=== PATIENT | female | born 1990 ===

== ENCOUNTER 2021-02-18 06:38 | Inpatient (IN) | payer OTHER ==
[2021-02-18] MEDS ORDERED: ELECTROLYTE-148 SOLN 1,000 ML IV SCH (07:30)
[2021-02-18 07:36] LABS: INR 0.87 (0.83-1.09); PROTHROMBIN TIME (PATIENT) 9.7 SEC (9.7-13.0)
[2021-02-18 08:00] VITALS: BMI 35.2
[2021-02-18] MEDS ORDERED: ACETAMINOPHEN 325 MG TABLET (FP) PO PRN (08:03)
[2021-02-18] MEDS ORDERED: ONDANSETRON 4 MG/2 ML VIAL IVPUSH PRN (08:03)
[2021-02-18] MEDS ORDERED: CITRIC ACID/SODIUM CITRATE 30 ML UNIT-DOSE CUP PO ONE (08:03)
[2021-02-18] MEDS ORDERED: TRIAMCINOLONE ACETONIDE 40 MG/ML 10 ML VIAL SQ ONE (08:15)
[2021-02-18] MEDS ORDERED: SENNOSIDES/DOCUSATE COMBO (SENNA PLUS) TABLET (UD) PO PRN (08:59)
[2021-02-18] MEDS ORDERED: METHYLERGONOVINE MALEATE 0.2 MG/1 ML AMP IM PRN (08:59)
[2021-02-18] MEDS ORDERED: IBUPROFEN 800 MG/8 ML IJ IVPB PRN (08:59)
[2021-02-18] MEDS ORDERED: OXYTOCIN 20 UNITS in 0.9% NS 20 UNIT/1,000 ML INFUS.BAG IV SCH (09:00)
[2021-02-18] MEDS ORDERED: oxyCODONE HCL 5 MG TABLET PO PRN (20:59)
[2021-02-19] MEDS ORDERED: diphenhydrAMINE HCL 25 MG CAPSULE (FP) PO PRN (00:15)
[2021-02-19] MEDS: IBUPROFEN 600 MG TABLET (FP) PO PRN ×4 (00:28→21:23)
[2021-02-19] MEDS: SIMETHICONE 80 MG TAB.CHEW (FP) PO PRN ×4 (00:30→21:23)
[2021-02-19 07:32] LABS: BASO % 0.3 % (0-2.0); HEMATOCRIT 35.1 % (32.4-45.2); HEMOGLOBIN 11.9 GM/dL (10.7-15.3); LYMPH % 23.1 % (8-40); MCH 32.6 pg (25.7-33.7); MCHC 33.9 g/dl (32.0-36.0); MEAN CELL VOLUME 96.3 fl (80-96); MEAN PLT VOLUME 9.9 fl (7.5-11.1); MONO % 7.2 % (3.8-10.2); NEUT % 68.4 % (42.8-82.8); PLATELET COUNT 118 10^3/uL (134-434); RBC 3.64 M/mm3 (3.60-5.2); RDW 13.5 % (11.6-15.6); WHITE BLOOD COUNT 8.8 K/mm3 (4.0-10.0)
[2021-02-19] MEDS ORDERED: BISACODYL 10 MG SUPP.RECT RC PRN (08:59)
[2021-02-19] MEDS ORDERED: DIPHTH,PERTUSS(ACELL),TET 0.5 ML DISP.SYRIN IM ONE (10:00)
[2021-02-19] MEDS: ACETAMINOPHEN 325 MG TABLET (FP) PO PRN (21:23)
[2021-02-20] MEDS: IBUPROFEN 600 MG TABLET (FP) PO PRN ×5 (02:10→20:54)
[2021-02-20] MEDS: ACETAMINOPHEN 325 MG TABLET (FP) PO PRN ×5 (02:28→20:53)
[2021-02-20] MEDS: SIMETHICONE 80 MG TAB.CHEW (FP) PO PRN ×5 (02:29→20:54)
[2021-02-21] MEDS: IBUPROFEN 600 MG TABLET (FP) PO PRN ×2 (00:22→05:59)
[2021-02-21] MEDS: ACETAMINOPHEN 325 MG TABLET (FP) PO PRN ×2 (00:24→05:59)
[2021-02-21] MEDS: SIMETHICONE 80 MG TAB.CHEW (FP) PO PRN ×2 (00:24→06:00)
[2021-02-21 08:46] LABS: BASO % 0.4 % (0-2.0); EOS % 1.3 % (0-4.5); HEMATOCRIT 35.4 % (32.4-45.2); HEMOGLOBIN 12.2 GM/dL (10.7-15.3); LYMPH % 17.9 % (8-40); MCHC 34.3 g/dl (32.0-36.0); MEAN CELL VOLUME 95.9 fl (80-96); MEAN PLT VOLUME 9.6 fl (7.5-11.1); MONO % 7.7 % (3.8-10.2); NEUT % 72.7 % (42.8-82.8); PLATELET COUNT 142 10^3/uL (134-434); RBC 3.69 M/mm3 (3.60-5.2); RDW 13.3 % (11.6-15.6); WHITE BLOOD COUNT 7.9 K/mm3 (4.0-10.0)
[2021-02-21 11:52] VITALS: BP 126/76; PULSE 84; TEMP 98.1
== END 2021-02-21 14:45 | disposition home or self-care (01) | DRG 540 ==
LOC: JLDR 06:38 → J3W 11:35
PROVIDERS: ADMIT Obstetrics & Gynecology; ATTEND Obstetrics & Gynecology
PROC: 10D00Z1 Extraction of Products of Conception, Low, Open Approach (ICD-10-PCS; principal; 2021-02-18)
DX: O34.211 Maternal care for low transverse scar from previous cesarean delivery (principal); Z3A.39 39 weeks gestation of pregnancy; Z37.0 Single live birth
CPT/HCPCS: 36415; 85025; 85610; 88307-TC; 90715